=== PATIENT | male | born 1975 | race Caucasian/White ===

== ENCOUNTER 2020-12-07 17:34 | Emergency (ER) | payer OTHER, SELFPAY ==
[2020-12-07] VITALS (21 sets, daily range): BP systolic 128–192; BP diastolic 65–91; PULSE 66–87; RESP 15–24; TEMP 36.8; O2SAT 97–100; BMI 30.1
--- NOTE | 2020-12-07 17:39 | DI.RAD.S_ITS ---
PROCEDURE: XR ANKLE RT MIN 3V INDICATIONS: fall, twisted ankle, deformity and pain TECHNIQUE: 3 views of the ankle were acquired. COMPARISON: None. FINDINGS: Bones: There is a moderately displaced, comminuted fracture of the distal fibula, with moderate angulation. This is seen above the level of the syndesmosis. The syndesmosis itself is widened. There is widening of the ankle mortise. There is a mildly displaced medial malleolar fracture, with intra-articular involvement. There is a prominently displaced posterior malleolar fracture with comminution and intra-articular involvement. This fracture is displaced approximately 1.7 cm. Incidental note is made of an enthesophyte at the Achilles insertion. Soft tissues: Soft tissue swelling is seen. IMPRESSION: Moderately to prominently displaced trimalleolar fracture. Dictated by: Ricci Salcido M.D. on 12/07/2020 at 17:00 Approved by: Ricci Salcido M.D. on 12/07/2020 at 17:01
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
[2020-12-07 18:58] LABS: COVID19 -Nasal RAPID Negative (Negative)
[2020-12-07] MEDS: fentaNYL 100 MCG/2 ML INJ 50 MCG IV (19:30)
[2020-12-07] MEDS: SODIUM CHLORIDE 0.9% 1,000 ML 125 ML IV (19:30)
[2020-12-07] MEDS: propofoL 200 MG/20 ML VIAL IV (19:35)
[2020-12-07] MEDS: propofoL 200 MG/20 ML VIAL 100 MG IV (19:35)
--- NOTE | 2020-12-07 19:57 | DI.RAD.S_ITS ---
PROCEDURE: XR ANKLE RT MIN 3V INDICATIONS: post reduction TECHNIQUE: 3 views of the ankle were acquired. COMPARISON: [facility], , XR ANKLE RT MIN 3V, 12/07/2020, 17:50. FINDINGS: Bones: No previously on identified fractures or dislocations. Ankle mortise is normally aligned. No suspicious bony lesions. There has been successful reduction of degree malalignment after closed reduction of right comminuted displaced ankle fracture, and splinting. Soft tissues: No tibiotalar joint effusion. Achilles tendon appears normal. IMPRESSION: Reduced severity of malalignment after closed reduction of ankle fracture on the right, with anticipated subsequent orthopedic surgical intervention. Dictated by: Josemanuel Garza M.D. on 12/07/2020 at 20:15 Approved by: Josemanuel Garza M.D. on 12/07/2020 at 20:16
[2020-12-07] MEDS: HYDROMORPHONE 0.5 MG INJ IV (20:05)
[2020-12-07] MEDS: HYDROCODONE/ACET 5/325 PREPACK 1 BOTTLE MISC (20:46)
== END 2020-12-07 21:10 | disposition home or self-care (01) ==
PROVIDERS: Emergency Provider Emergency Medicine
DX: S82.891A Other fracture of right lower leg, initial encounter for closed fracture (principal); X58.XXXA Exposure to other specified factors, initial encounter; Z20.822 Contact with and (suspected) exposure to COVID-19
CPT/HCPCS: 27752; 29515; 36415; 73610; 87635; 96361; 96374; 99152; 99284; 99285; C9803; J1170; J2704; J3010